=== PATIENT | male | born 1995 | race Caucasian/White ===

== ENCOUNTER 2018-07-25 07:54 | Emergency (ER) | payer BC ==
[2018-07-25 08:16] VITALS: O2SAT 96; BMI 31.1
--- NOTE | 2018-07-25 08:44 | C.PDOC ---
History Of Present Illness 23 y/o male presents to the ER requesting detox from cocaine. Patient states that he has personal issues and he been taking a lot of cocaine. Patient reports that his last use was yesterday. Denies using other drugs, suicidal ideation, homicidal ideation, fever,chills, CP,SOB, and palpitations. Time Seen by Provider: 07/25/18 08:12 Chief Complaint (Nursing): Substance Abuse History Per: Patient History/Exam Limitations: no limitations Past Medical History Reviewed: Historical Data, Nursing Documentation, Vital Signs Vital Signs: Last Vital Signs Temp 98.2 F 07/25/18 08:04 Pulse 124 H 07/25/18 08:04 Resp 18 07/25/18 08:04 BP 147/102 H 07/25/18 08:04 Pulse Ox 96 07/25/18 08:04 - Medical History PMH: Asthma Denies: Depression, Diabetes, Hepatitis, HIV, HTN, Seizures, Sexually Transmitted Disease Surgical History: No Surg Hx - [facility] Procedures APPLICATION OF SPLINT (12/06/12) PSYCHIA INTERV/EVAL NEC (10/18/13) Family History: States: No Known Family Hx - Social History Hx Tobacco Use: Yes Hx Alcohol Use: Yes Hx Substance Use: Yes (cocaine) - Immunization History Hx Tetanus Toxoid Vaccination: No Hx Influenza Vaccination: No Hx Pneumococcal Vaccination: No Review Of Systems Except As Marked, All Systems Reviewed And Found Negative. Constitutional: Negative for: Fever, Chills Cardiovascular: Negative for: Chest Pain, Palpitations Respiratory: Negative for: Shortness of Breath Physical Exam - Physical Exam Appears: No Acute Distress Skin: Normal Color, Warm, Dry Head: Atraumatic, Normacephalic Eye(s): bilateral: Normal Inspection Nose: Normal Oral Mucosa: Moist Neck: Supple Chest: Symmetrical Cardiovascular: Rhythm Regular Respiratory: Normal Breath Sounds, No Rales, No Rhonchi, No Wheezing Gastrointestinal/Abdominal: Normal Exam, Soft, No Tenderness, No Guarding, No R ebound Neurological/Psych: Oriented x3, Normal Speech ED Course And Treatment O2 Sat by Pulse Oximetry: 96 (RA) Pulse Ox Interpretation: Normal Medical Decision Making Medical Decision Making: On re-exam, the patient reports improvement of symptoms. Lungs are CTA, heart is RRR, abdomen is soft, non-tender and tolerating Po well. Follow up with the medical doctor within 1-2 days. Return if worsened. Disposition - Disposition Referrals: [facility] [Outside] [place] [facility] [place] [Outside] [facility] [Outside] Disposition: HOME/ ROUTINE Disposition Time: 08:44 Condition: GOOD Additional Instructions: Follow up with the medical doctor within 1-2 days. Return if worsened Instructions: Cocaine Use Disorder Forms: [employer] (Wolof) - Clinical Impression Clinical Impression: Cocaine abuse - PA / [employer] O[employer]ATOR / Resident Statement MD/DO has reviewed & agrees with the documentation as recorded. - Scribe Statement The provider has reviewed the documentation as recorded by the Scribe Al Braga Provider Attestation All medical record entries made by the Liibe were at my direction and perso brianne dictated by me. I have reviewed the chart and agree that the record accurately reflects my personal performance of the history, physical exam, medical decision making, and the department course for this patient. I have also personally directed, reviewed, and agree with the discharge instructions and disposition.
[2018-07-25 09:16] VITALS: BP 150/90; PULSE 92; RESP 20; TEMP 98.1
== END 2018-07-25 09:40 | disposition home or self-care (01) ==
LOC: C.ER 07:54
DX: F14.10 Cocaine abuse, uncomplicated (principal)